=== PATIENT | female | born 1980 | race Caucasian/White ===

== ENCOUNTER → 2023-11-27 13:13 | Outpatient (REF) | payer OTHER, SELFPAY | LOC: MRI 3T 13:13 | PROVIDERS: ATTENDING PHYSICIAN Internal Medicine | DX: Z15.01 Genetic susceptibility to malignant neoplasm of breast (principal) | CPT/HCPCS: 77047; C8937 ==

== ENCOUNTER → 2023-12-31 10:16 | Outpatient (REF) | payer OTHER, SELFPAY | LOC: RCS 10:16 | PROVIDERS: ATTENDING PHYSICIAN Internal Medicine | DX: R00.2 Palpitations (principal) | CPT/HCPCS: 93225; 93226 ==

== ENCOUNTER → 2024-02-27 09:20 | Outpatient (REF) | payer OTHER, SELFPAY | LOC: RCS 09:20 | PROVIDERS: ATTENDING PHYSICIAN Internal Medicine Cardiovascular Disease; FAMILY PHYSICIAN Internal Medicine | DX: R00.2 Palpitations (principal) | CPT/HCPCS: 93306 ==